=== PATIENT | female | born 1960 | race Two or more races ===

== ENCOUNTER 2016-05-24 15:20 | Emergency (ER) | payer OTHER ==
[~2016-05-24] VITALS: Ht 172.7 cm; Wt 72.6 kg
[~2016-05-24 15:20] MED LIST: BUPR75TA3 PO
[2016-05-24 15:58] LABS: BASOPHILS % (AUTO) 0.4 % (0.0-2.0); EOSINOPHILS # (AUTO) 0.3 /CMM (0.0-0.7); EOSINOPHILS % (AUTO) 4.7 % (0.0-6.0); HEMATOCRIT 38 % (33-45); HEMOGLOBIN 12.8 g/dL (11.5-14.8); LYMPHOCYTES # (AUTO) 1.8 /CMM (0.8-4.8); LYMPHOCYTES % (AUTO) 25.1 % (20.0-44.0); MEAN CORPUSCULAR HEMOGLOBIN 30 PG (26.0-33.0); MEAN CORPUSCULAR HGB CONC 34 g/dl (31.0-36.0); MEAN CORPUSCULAR VOLUME 89 fL (82-100); MONOCYTES # (AUTO) 0.6 /CMM (0.1-1.30); MONOCYTES % (AUTO) 7.8 % (2.0-12.0); NEUTROPHILS # (AUTO) 4.4 /CMM (1.8-8.9); PLATELET COUNT (AUTO) 279 /CMM (150-450); RDW COEFFICIENT OF VARIATION 12.7 (11.5-15.0); RED BLOOD CELL COUNT(AUTO) 4.27 MIL/uL (4.0-5.2); WHITE BLOOD COUNT (AUTO) 7.1 K/uL (4.3-11.0)
[2016-05-24] MEDS ORDERED: IV SET PRIMARY PUMP SET 1 EA INFUS.SET MC ONE (15:59)
[2016-05-24] MEDS ORDERED: IV NS 0.9% 1,000 ML ONE (15:59)
[2016-05-24] MEDS ORDERED: PIPERACILLIN /TAZOBACTAM 3.375 G in IV D5W 50 ML IV ONE (16:00)
[2016-05-24] MEDS ORDERED: VANCOMYCIN 1 GM in IV D5W 250 ML IV ONE (16:00)
[2016-05-24] MEDS ORDERED: IV NS 0.9% 1,000 ML BAG IV ONE (16:00)
--- NOTE | 2016-05-24 16:00 | NUR ---
PT MEDICATED ORDERED.
--- NOTE | 2016-05-24 16:04 | NUR ---
bib self, cc: left forearm wound possible spider bite a week ago. Noted lfa with redness and slight swelling. Skin is warm to touch and non diaphoretic. Patient afebrile. Vss.
--- NOTE | 2016-05-24 16:05 | NUR ---
IV ACCESS STARTED. CERTIFIED DENTAL ASSISTANT AT TO DRAW BLOOD.
[2016-05-24 16:08] LABS: CALCIUM, SERUM 8.7 mg/dL (8.5-10.1); CREATININE 0.8 mg/dL (0.6-1.3); POTASSIUM 4.1 mmol/L (3.5-5.1)
--- NOTE | 2016-05-24 16:10 | NUR ---
xreay tech at
[2016-05-24 16:12] LABS: INR 0.95 (0.87-1.13); PROTHROMBIN TIME 9.9 SECS (9.5-12.7)
[2016-05-24 16:20] LABS: ALBUMIN 3.7 g/dL (3.4-5.0); BILIRUBIN,DIRECT 0.1 mg/dL (0.0-0.2); BILIRUBIN,TOTAL 0.3 mg/dL (0.2-1.0); TOTAL PROTEIN, SERUM 6.8 g/dL (6.4-8.2)
[2016-05-24 16:21] LABS: APPEARANCE,URINE Clear (CLEAR); BILIRUBIN,URINE Negative (NEGATIVE); BLOOD, URINE Negative Ery/uL (NEGATIVE); COLOR,URINE Yellow (YELLOW); KETONES,URINE Negative (NEGATIVE); LEUKOCYTE ESTERASE ,URINE Negative (NEGATIVE); NITRITE, URINE Negative (NEGATIVE); PH,URINE 5.5 (5.0-8.0); PROTEIN,URINE Negative (NEGATIVE); UGLUCOSE Negative (NEGATIVE); UROBILINOGEN,URINE 0.2 EU/dL (0.2)
[2016-05-24 16:40] LABS: LACTIC ACID 0.7 mmol/L (0.4-2.0)
[2016-05-24 17:28] VITALS: BP 126/81
--- NOTE | 2016-05-24 17:28 | NUR ---
Patient discharged to home in stable condition. Written and verbal after care instructions given. Patient verbalizes understanding of instruction.
== END 2016-05-24 17:29 | disposition home or self-care (01) ==
LOC: ER 15:23
DX: L03.114 Cellulitis of left upper limb (principal); F41.9 Anxiety disorder, unspecified; F32.9 Major depressive disorder, single episode, unspecified; F17.200 Nicotine dependence, unspecified, uncomplicated; B19.20 Unspecified viral hepatitis C without hepatic coma
CPT/HCPCS: 36415; 71010-TC; 80048-TC; 80076-TC; 81000-TC; 83605-TC; 85025-TC; 85730-TC; 87040-TC; A4606; J2543; J3370; J7030; J7060; Z7610

== ENCOUNTER 2016-08-01 21:06 | Emergency (ER) | payer OTHER ==
[~2016-08-01] VITALS: Ht 165.1 cm; Wt 74.8 kg
[2016-08-01 21:10] VITALS: BP 124/55
[2016-08-01] MEDS ORDERED: CEPHALEXIN MONOHYDRATE 500 MG CAPSULE PO ONE ×2 (22:16→22:30)
[2016-08-01] MEDS ORDERED: SULFAMETH/TRIMETH 800/160 MG 1 UDTAB TABLET PO ONE ×2 (22:16→22:30)
== END 2016-08-01 22:41 | disposition home or self-care (01) ==
LOC: ER 21:09
DX: L03.114 Cellulitis of left upper limb (principal); L30.9 Dermatitis, unspecified; B35.2 Tinea manuum; F17.200 Nicotine dependence, unspecified, uncomplicated; B19.20 Unspecified viral hepatitis C without hepatic coma
CPT/HCPCS: A4606; Z7610

== ENCOUNTER 2017-03-15 20:56 | Emergency (ER) | payer OTHER ==
[~2017-03-15] VITALS: Ht 165.1 cm; Wt 77.1 kg
[2017-03-15 21:06] VITALS: BP 138/75
== END 2017-03-15 21:37 | disposition home or self-care (01) ==
LOC: ER 20:56
DX: S10.96XA Insect bite of unspecified part of neck, initial encounter (principal); L03.221 Cellulitis of neck; R59.1 Generalized enlarged lymph nodes; F32.9 Major depressive disorder, single episode, unspecified; F41.9 Anxiety disorder, unspecified; F43.10 Post-traumatic stress disorder, unspecified; F10.10 Alcohol abuse, uncomplicated; F17.200 Nicotine dependence, unspecified, uncomplicated; W57.XXXA Bitten or stung by nonvenomous insect and other nonvenomous arthropods, initial encounter; Y93.89 Activity, other specified; Y92.89 Other specified places as the place of occurrence of the external cause; Y99.8 Other external cause status
CPT/HCPCS: A4606; Z7610

== ENCOUNTER 2018-12-02 17:43 | Emergency (ER) | payer OTHER ==
[~2018-12-02] VITALS: Ht 165.1 cm; Wt 87.5 kg
--- NOTE | 2018-12-02 17:58 | NUR ---
PTCAME INTO THE ED C/O "Pain on R side on/off xcouple of months was dx w/UTI and given meds but not better. PT. AAOX4, VSS, BREATHING EVEN AND UNLABORED. PT CONNECTED TO THE MONITOR
[2018-12-02] MEDS ORDERED: IV NS 0.9% 1,000 ML BAG IV ONE (18:00)
[2018-12-02] MEDS ORDERED: KETOROLAC TROMETHAMINE INJ 30 MG/ML VIAL IV ONE (18:00)
[2018-12-02] MEDS ORDERED: ONDANSETRON HCL/PF 4 MG/2 ML VIAL IVP ONE (18:00)
--- NOTE | 2018-12-02 18:15 | NUR ---
URINE SAMPLE COLLECTED AND SENT TO LAB
--- NOTE | 2018-12-02 18:15 | NUR ---
BLOOD DRAWN AND SENT TO LAB
[2018-12-02 18:17] LABS: BASOPHILS % (AUTO) 0.4 % (0.0-2.0); EOSINOPHILS % (AUTO) 4.2 % (0.0-6.0); HEMATOCRIT 42 % (33-45); LYMPHOCYTES # (AUTO) 2.5 /CMM (0.8-4.8); LYMPHOCYTES % (AUTO) 39.3 % (20.0-44.0); MEAN CORPUSCULAR HGB CONC 34 g/dl (31.0-36.0); MEAN CORPUSCULAR VOLUME 92 fL (82-100); MONOCYTES # (AUTO) 0.4 /CMM (0.1-1.30); MONOCYTES % (AUTO) 6.4 % (2.0-12.0); NEUTROPHILS # (AUTO) 3.2 /CMM (1.8-8.9); NEUTROPHILS % (AUTO) 49.7 % (43.0-81.0); PLATELET COUNT (AUTO) 315 /CMM (150-450); WHITE BLOOD COUNT (AUTO) 6.4 K/uL (4.3-11.0)
[2018-12-02] MEDS ORDERED: ONDANSETRON HCL/PF 4 MG/2 ML VIAL ONE (18:17)
[2018-12-02 18:18] LABS: APPEARANCE,URINE Clear (CLEAR); BILIRUBIN,URINE Negative (NEGATIVE); BLOOD, URINE Negative Ery/uL (NEGATIVE); COLOR,URINE Yellow (YELLOW); KETONES,URINE Negative (NEGATIVE); LEUKOCYTE ESTERASE ,URINE Negative (NEGATIVE); NITRITE, URINE Negative (NEGATIVE); PROTEIN,URINE Negative (NEGATIVE); UGLUCOSE Negative (NEGATIVE); UROBILINOGEN,URINE 0.2 EU/dL (0.2)
[2018-12-02] MEDS ORDERED: KETOROLAC TROMETHAMINE INJ 30 MG/ML VIAL ONE (18:24)
[2018-12-02 18:27] LABS: CALCIUM, SERUM 9.7 mg/dL (8.5-10.1); CREATININE 0.8 mg/dL (0.6-1.3); POTASSIUM 4.3 mmol/L (3.5-5.1)
[2018-12-02 18:32] LABS: ALBUMIN 3.9 g/dL (3.4-5.0); BILIRUBIN,DIRECT 0.1 mg/dL (0.0-0.2); BILIRUBIN,TOTAL 0.3 mg/dL (0.2-1.0); TOTAL PROTEIN, SERUM 7.4 g/dL (6.4-8.2)
--- NOTE | 2018-12-02 18:51 | NUR ---
ultrasound at bedside
--- NOTE | 2018-12-02 19:27 | NUR ---
REPORT GIVEN TO SANFORD ETIENNE
[2018-12-02 20:24] VITALS: BP 118/60
--- NOTE | 2018-12-02 20:42 | NUR ---
IV removed. Catheter intact and site benign. Pressure and 4x4 applied to site. No bleeding noted.Patient discharged to home in stable condition. Written and verbal after care instructions given. Patient verbalizes understanding of instruction.
== END 2018-12-02 20:44 | disposition home or self-care (01) ==
LOC: ER 17:43
DX: K80.20 Calculus of gallbladder without cholecystitis without obstruction (principal); F32.9 Major depressive disorder, single episode, unspecified; F43.10 Post-traumatic stress disorder, unspecified; F41.9 Anxiety disorder, unspecified; F17.200 Nicotine dependence, unspecified, uncomplicated; Z98.890 Other specified postprocedural states; Z79.899 Other long term (current) drug therapy
CPT/HCPCS: 36415; 74176; 76705; 80048; 80076; 81001; 83690; 85025; 96374; 96375; 99284; J1885; J2405; J7030; 81000-TC